=== PATIENT | female | born 1975 | race Caucasian/White ===

== ENCOUNTER 2019-01-29 22:06 | Inpatient (IN) | payer BC ==
[2019-01-29] MEDS ORDERED: IPRATROPIUM-ALBUTEROL 3 ML NEB INHALATION STA (23:16)
[2019-01-29 23:19] LABS: Basophils # (A) 0.1 k/uL (0-0.2); Basophils % (A) 1 %; Eosinophils # (A) 0.3 k/uL (0-0.7); Eosinophils % (A) 4 %; HCT 41.3 % (34.0-46.0); HGB 13.5 gm/dL (11.4-16.0); Lymphocytes # (A) 2.9 k/uL (1.0-4.8); Lymphocytes % (A) 35 %; MCH 29.5 pg (25.0-35.0); MCHC 32.7 g/dL (31.0-37.0); MCV 90.3 fL (80.0-100.0); Mean Platelet Volume 7.4; Monocytes # (A) 0.4 k/uL (0-1.0); Monocytes % (A) 5 %; Neutrophils # (A) 4.6 k/uL (1.3-7.7); Neutrophils % (A) 54 %; Platelet Count 271 k/uL (150-450); RBC 4.57 m/uL (3.80-5.40); RDW 12.5 % (11.5-15.5); WBC 8.5 k/uL (3.8-10.6)
[2019-01-29 23:34] LABS: ALT 20 U/L (9-52); AST 18 U/L (14-36); African American GFR (CKD) >90 (>60 ml/min/1.73 sqM); Alkaline Phosphatase 53 U/L (38-126); Anion Gap 10 mmol/L; Blood Urea Nitrogen 12 mg/dL (7-17); Calcium 8.9 mg/dL (8.4-10.2); Carbon Dioxide 22 mmol/L (22-30); Chloride 108 mmol/L (98-107); Glucose 89 mg/dL (74-99); Magnesium 1.9 mg/dL (1.6-2.3); Potassium 4.2 mmol/L (3.5-5.1); Sodium 140 mmol/L (137-145); Total Bilirubin 0.3 mg/dL (0.2-1.3); Total Protein 6.9 g/dL (6.3-8.2)
--- NOTE | 2019-01-29 23:39 | XR ---
EXAM: XR Chest, 2 Views CLINICAL HISTORY: ITS.REASON XR Reason: Chest Pain TECHNIQUE: Frontal and lateral views of the chest. COMPARISON: No relevant prior studies available. FINDINGS: Lungs: Mild peribronchial thickening. No focal consolidation. Pleural space: No significant pleural effusion or pneumothorax. Heart: Unremarkable. Mediastinum: Unremarkable. Bones/joints: No acute fracture. IMPRESSION: Mild peribronchial thickening. No focal consolidation.
[2019-01-29 23:45] LABS: INR 0.9 (<1.2); Prothrombin Time 9.4 sec (9.0-12.0)
[2019-01-29 23:54] LABS: D-Dimer 0.66 mg/L FEU (<0.60)
--- NOTE | 2019-01-30 00:05 | ED ---
General Adult HPI - General Source: patient, RN notes reviewed, old records reviewed Mode of arrival: ambulatory Limitations: no limitations <Stew Renteria - Last Filed: 01/30/19 00:11> <Luis Felipe Herman - Last Filed: 01/30/19 00:39> - General Chief complaint: Chest Pain Stated complaint: chest pain, SOB Time Seen by Provider: 01/29/19 22:16 - History of Present Illness Initial comments: 43-year-old female patient with past history of asthma presents ED with chief complaint of chest pain. Patient reports that beginning approximately 6 PM today she began a substernal pressure which radiated into her left arm. Patient reports she has waxing and waning worse breath as well. Patient states that the pain makes it difficult for her to take a deep breath. Patient is on oral contraceptives. Denies any long recent prolonged travel. Patient denies any pain in her legs. Patient denies any abdominal pain nausea vomiting or diarrhea. Patient is currently pain-free. Patient states that her father does have an TX which was fatal at age 62, denies any other family history of cardiovascular disease. Denies any other complaints this time. Systemic: Pt denies fatigue, fever/chills, rash. Pt denies weakness, night sweats, weight loss. Neuro: Pt denies headache, visual disturbances, syncope or pre-syncope. HEENT: Pt denies ocular discharge or irritation, otalgia, rhinorrhea, pharyngitis or notable lymphadenopathy. Cardiopulmonary: Pt denies heart palpitations, dyspnea on exertion. Abdominal/GI: Pt denies abdominal pain, n/v/d. : Pt denies dysuria, burning w/ urination, frequency/urgency. Denies new onset urinary or bowel incontinence. MSK: Pt denies myalgia, loss of strength or function in extremities. Neuro: Pt denies new onset weakness, paresthesias. (Stew Renteria) - Related Data Home Medications Medication Instructions Recorded Confirmed Dextroamphetamine/Amphetamine 10 mg PO TID 01/29/19 01/29/19 [Adderall] Levothyroxine Sodium [Synthroid] 100 mcg PO DAILY 01/29/19 01/29/19 Norethindrone-E.estradiol-Iron 1 tab PO DAILY 01/29/19 01/29/19 [Junel Fe 1 mg-20 Mcg Tablet] Allergies Allergy/AdvReac Type Severity Reaction Status Date / Time lemon Allergy Unknown Verified 01/29/19 22:49 mushroom Allergy Unknown Verified 01/29/19 22:49 Poultry [Fisher] Allergy Unknown Verified 01/29/19 22:49 tomato Allergy Unknown Verified 01/29/19 22:49 latex AdvReac Rash/Hives Verified 01/29/19 22:14 Review of Systems ROS Other: All systems not noted in ROS Statement are negative. <MyraStew J - Last Filed: 01/30/19 00:11> ROS Other: All systems not noted in ROS Statement are negative. <Luis Felipe Herman - Last Filed: 01/30/19 00:39> ROS Statement: Those systems with pertinent positive or pertinent negative responses have been documented in the HPI. Past Medical History Past Medical History: Thyroid Disorder History of Any Multi-Drug Resistant Organisms: None Reported Additional Past Surgical History / Comment(s): nasal X2 Past Psychological History: ADD/ADHD Smoking Status: Never smoker Past Alcohol Use History: Rare Past Drug Use History: None Reported <MyraStew J - Last Filed: 01/30/19 00:11> General Exam Limitations: no limitations <Stew Renteria - Last Filed: 01/30/19 00:11> - General Exam Comments Initial Comments: Constitutional: NAD, AOX3, Pt has pleasant affect. HEENT: NC/AT, trachea midline, neck supple, no lymphadenopathy. Posterior pharynx non erythematous, without exudates. External ears appear normal, without discharge. Mucous membranes moist. Eyes PERRLA, EOM intact. There is no scleral icterus. No pallor noted. Cardiopulmonary: RRR, no murmurs, rubs or gallops, no JVD noted. Lungs CTAB in anterior and posterior parker. No peripheral edema. Abdominal exam: Abdomen soft and non-distended. Abdomen non-tender to palpation in all 4 quadrants. Bowel sounds active in LLQ. No hepatosplenomegaly. No ecchymosis Neuro: CN II-XII grossly intact. No nuchal rigidity. No raccon eyes, no ng sign, no hemotympanum. No cervical spinal tenderness. MSK: No posterior calf tenderness bilaterally, homans sign negative bilaterally. Posterior tibialis and radial pulse +2 bilaterally. Sensation intact in upper and lower extremities. Full active ROM in upper and lower extremities, 5/5 stregnth. (Stew Renteria) Course Vital Signs 01/29/19 01/29/19 01/29/19 22:11 23:51 23:57 Temperature 98.3 F Pulse Rate 68 62 70 Respiratory 16 Rate Blood Pressure 150/92 O2 Sat by Pulse 99 Oximetry Medical Decision Making - Lab Data Result diagrams: 01/29/19 22:30 01/29/19 22:30 - EKG Data -: EKG Interpreted by Me (and Dr. Herman) <Stew Renteria - Last Filed: 01/30/19 00:11> - Lab Data Result diagrams: 01/29/19 22:30 01/29/19 22:30 <Luis Felipe Herman - Last Filed: 01/30/19 00:39> - Medical Decision Making 43-year-old female patient with past history of asthma presents ED with chief complaint of chest pain. Patient reports that beginning approximately 6 PM today she began a substernal pressure which radiated into her left arm. Patient reports she has waxing and waning worse breath as well. Patient states that the pain makes it difficult for her to take a deep breath. Patient is on oral contraceptives. Denies any long recent prolonged travel. Patient denies any pain in her legs. Patient denies any abdominal pain nausea vomiting or diarrhea. Patient is currently pain-free. Patient states that her father does have an TX which was fatal at age 62, denies any other family history of cardiovascular disease. Denies any other complaints this time. Patient vitla signs stable, afebrile. Physical exam did not display acute pathology. Laboratory investigations revealed nonpresent CBC, CMP. Correlation studies negative. D-dimer mildly elevated at 0.66. roponin negative. This revealed mild peribronchial thickening, no focal consolidation. EKG not concerning for acute ischemia. Patient signed out to attending physician Dr. Herman pending CTA. (Stew Renteria) Patient reexamined by myself, Dr. Herman. Patient resting comfortably in bed, symptom-free at this time. Dr. Marie paged twice then notified by cell phone of admission. Patient was updated on results and plan. (Luis Felipe Herman) - Lab Data Lab Results 01/29/19 01/29/19 01/29/19 Range/Units 22:30 22:30 22:30 WBC 8.5 (3.8-10.6) k/uL RBC 4.57 (3.80-5.40) m/uL Hgb 13.5 (11.4-16.0) gm/dL Hct 41.3 (34.0-46.0) % MCV 90.3 (80.0-100.0) fL MCH 29.5 (25.0-35.0) pg MCHC 32.7 (31.0-37.0) g/dL RDW 12.5 (11.5-15.5) % Plt Count 271 (150-450) k/uL Neutrophils % 54 % Lymphocytes % 35 % Monocytes % 5 % Eosinophils % 4 % Basophils % 1 % Neutrophils # 4.6 (1.3-7.7) k/uL Lymphocytes # 2.9 (1.0-4.8) k/uL Monocytes # 0.4 (0-1.0) k/uL Eosinophils # 0.3 (0-0.7) k/uL Basophils # 0.1 (0-0.2) k/uL PT 9.4 (9.0-12.0) sec INR 0.9 (<1.2) APTT 21.0 L (22.0-30.0) sec D-Dimer 0.66 H (<0.60) mg/L FEU Sodium 140 (137-145) mmol/L Potassium 4.2 (3.5-5.1) mmol/L Chloride 108 H (98-107) mmol/L Carbon Dioxide 22 (22-30) mmol/L Anion Gap 10 mmol/L BUN 12 (7-17) mg/dL Creatinine 0.66 (0.52-1.04) mg/dL Est GFR (CKD-EPI)AfAm >90 (>60 ml/min/1.73 sqM) Est GFR (CKD-EPI)NonAf >90 (>60 ml/min/1.73 sqM) Glucose 89 (74-99) mg/dL Calcium 8.9 (8.4-10.2) mg/dL Magnesium 1.9 (1.6-2.3) mg/dL Total Bilirubin 0.3 (0.2-1.3) mg/dL AST 18 (14-36) U/L ALT 20 (9-52) U/L Alkaline Phosphatase 53 (38-126) U/L Troponin I (0.000-0.034) ng/mL NT-Pro-B Natriuret Pep pg/mL Total Protein 6.9 (6.3-8.2) g/dL Albumin 4.0 (3.5-5.0) g/dL 01/29/19 01/29/19 Range/Units 22:30 22:30 WBC (3.8-10.6) k/uL RBC (3.80-5.40) m/uL Hgb (11.4-16.0) gm/dL Hct (34.0-46.0) % MCV (80.0-100.0) fL MCH (25.0-35.0) pg MCHC (31.0-37.0) g/dL RDW (11.5-15.5) % Plt Count (150-450) k/uL Neutrophils % % Lymphocytes % % Monocytes % % Eosinophils % % Basophils % % Neutrophils # (1.3-7.7) k/uL Lymphocytes # (1.0-4.8) k/uL Monocytes # (0-1.0) k/uL Eosinophils # (0-0.7) k/uL Basophils # (0-0.2) k/uL PT (9.0-12.0) sec INR (<1.2) APTT (22.0-30.0) sec D-Dimer (<0.60) mg/L FEU Sodium (137-145) mmol/L Potassium (3.5-5.1) mmol/L Chloride (98-107) mmol/L Carbon Dioxide (22-30) mmol/L Anion Gap mmol/L BUN (7-17) mg/dL Creatinine (0.52-1.04) mg/dL Est GFR (CKD-EPI)AfAm (>60 ml/min/1.73 sqM) Est GFR (CKD-EPI)NonAf (>60 ml/min/1.73 sqM) Glucose (74-99) mg/dL Calcium (8.4-10.2) mg/dL Magnesium (1.6-2.3) mg/dL Total Bilirubin (0.2-1.3) mg/dL AST (14-36) U/L ALT (9-52) U/L Alkaline Phosphatase (38-126) U/L Troponin I <0.012 (0.000-0.034) ng/mL NT-Pro-B Natriuret Pep 41 pg/mL Total Protein (6.3-8.2) g/dL Albumin (3.5-5.0) g/dL - EKG Data EKG Comments: 50. 63, OR interval 178, QRS 80, QT/QTC 414 since 423. Normal sinus rhythm, anterior infarct age interment. Normal EKG, no concern for acute ischemia at this time. (Stew Renteria) Disposition Is patient prescribed a controlled substance at d/c from ED?: No <Stwe Renteria - Last Filed: 01/30/19 00:11> <Luis Felipe Herman - Last Filed: 01/30/19 00:39> Clinical Impression: Chest pain Disposition: ADMITTED IP TO THIS HOSP Condition: Serious Referrals: Bianka Porras DO [Primary Care Provider] - 1-2 days
[2019-01-30] MEDS ORDERED: NITROGLYCERIN SL TABS 0.4 MG TAB SUBLINGUAL PRN (00:09)
--- NOTE | 2019-01-30 01:21 | CT ---
EXAM: CT Angiography Chest With Intravenous Contrast CLINICAL HISTORY: chest pain, SOB, elevated d-d mayuri ITS.REASON CT Reason: Pain TECHNIQUE: Axial computed tomographic angiography images of the chest with intravenous contrast using pulmonary embolism protocol. CTDI is 9.5 mGy and DLP is 429.9 mGy-cm. This CT exam was performed using one or more of the following dose reduction techniques: automated exposure control, adjustment of the mA and/or kV according to patient size, and/or use of iterative reconstruction technique. MIP reconstructed images were created and reviewed. COMPARISON: No relevant prior studies available. FINDINGS: Artifacts: Motion artifact. Pulmonary arteries: Essentially nondiagnostic study for PE due to bolus timing. No definite large central saddle embolus. Aorta: No aortic aneurysm or dissection. Great vessels of aortic arch: Aberrant right subclavian artery. Hepatic veins: Reflux of contrast into the hepatic veins. Lungs: Evaluation of the pulmonary parenchyma is limited due to motion artifact. No consolidation. Pleural space: No significant effusion. No pneumothorax. Heart: Unremarkable. Mediastinum: Mild esophageal wall thickening. Small hiatal hernia. Bones/joints: No acute fracture. Soft tissues: Unremarkable as visualized. Lymph nodes: Unremarkable. Adrenals: Right adrenal nodule measuring 1.7 cm. IMPRESSION: 1. Limited study for PE, as above. 2. Mild esophageal wall thickening. Small hiatal hernia. 3. Right adrenal nodule. 4. Additional incidental findings, as above.
--- NOTE | 2019-01-30 11:16 | US ---
EXAMINATION TYPE: US venous doppler duplex LE DATE OF EXAM: 01/30/2019 8:35 AM COMPARISON: NONE CLINICAL HISTORY: elevated d-dimer. chest pain, no leg symptoms SIDE PERFORMED: bilateral TECHNIQUE: The lower extremity deep venous system is examined utilizing real time linear array sonog david with graded compression, doppler sonography and color-flow sonography. VESSELS IMAGED: External Iliac Vein (EIV) Common Femoral Vein Deep Femoral Vein Greater Saphenous Vein * Femoral Vein Popliteal Vein Small Saphenous Vein * Proximal Calf Veins (* superficial vessels) Right Leg: Appears negative for DVT Left Leg: Internal echoes that were not compressible seen within popiteal vein, color flow was detec ming. Within the popliteal vein low level internal echoes are present, lack of compressibility. IMPRESSION: Deep venous thrombosis within the left popliteal vein is suspected. No evident deep venou s thrombosis at or above the right knee.
--- NOTE | 2019-01-30 11:25 | CONS ---
CONSULTATION Mrs. Tijerina is a 43-year-old female who is admitted to the emergency room with a complaint of chest discomfort. The patient gives a history that yesterday she started having some substernal chest discomfort which was radiating to the left arm. The patient's pain was waxing and waning and was with shortness of breath. She did not had any nausea, vomiting, or sweating. The pain lasted for few minutes and then it reoccurred. She came to the emergency room. EKGs and cardiac enzymes were normal. This patient is physically active. She usually runs 5 or 10 miles. About 2 or 3 weeks ago while she was running after 5 miles, she had an episode of near syncope. She denies any history of valvular disease and denies any history of diabetes, hypertension, or smoking. The patient does have a family history of coronary artery disease. PAST MEDICAL HISTORY: Includes a history of thyroid disorder, history of ADD and ADHD. PHYSICAL EXAMINATION: At present reveals a 43-year-old female who does not appear to be in any acute distress. In the emergency room, patient's oxygen saturation was 99%. Blood pressure was 150/90 mmHg. HEENT: Examination was negative. Neck was supple. There was no increase in jugular venous pressure. Both the carotid pulses were felt, there was no bruit. Chest is symmetrical. Heart, the PMI is not felt. First and second heart sounds are normal. There is no evidence of any murmur. Lungs are clinically clear to auscultation and percussion. Abdomen is negative. Extremities and peripheral pulsations are 2+. The patient's cardiac enzymes are normal. EKG is normal. The patient had a chest CTA done, which was normal. There was no evidence of pulmonary embolism. No coronary artery calcium is detected. FINAL IMPRESSION: Chest pains are suggestive of atypical angina. Patient is physically quite active and had an one episode of near syncope possibly secondary to dehydration or orthostatic hypotension. We will evaluate the patient with a stress echocardiogram and we will check the lipid panel. We will also have a radiologist look to see if there is any evidence of calcium in the coronary arteries. MMODL / IJN: [id number] /
[2019-01-30 11:36] LABS: Cholesterol 219 mg/dL (<200); HDL Cholesterol 41 mg/dL (40-60); LDL Cholesterol,Calculated 126 mg/dL (0-99); Triglycerides 260 mg/dL (<150)
[2019-01-30] MEDS ORDERED: HEPARIN SODIUM,PORCINE 10,000 UNIT/ML 1 ML VIAL IV ONE (12:08)
[2019-01-30] MEDS ORDERED: HEPARIN SODIUM,PORCINE 5,000 UNIT/ML 1 ML VIAL IV PRN (12:08)
--- NOTE | 2019-01-30 12:20 | US ---
EXAMINATION TYPE: US carotid duplex BILAT DATE OF EXAM: 01/30/2019 COMPARISON: NONE CLINICAL HISTORY: syncope. EXAM MEASUREMENTS: RIGHT: Peak Systolic Velocity (PSV) cm/sec ----- Right CCA: 74.6 ----- Right ICA: 102.6 ----- Right ECA: 112.4 ICA/CCA ratio: 1.4 RIGHT: End Diastole cm/sec ----- Right CCA: 21.5 ----- Right ICA: 18.5 ----- Right ECA: 15.5 LEFT: Peak Systolic Velocity (PSV) cm/sec ----- Left CCA: 77.3 ----- Left ICA: 65.4 ----- Left ECA: 69.8 ICA/CCA ratio: 0.8 LEFT: End Diastole cm/sec ----- Left CCA: 23.2 ----- Left ICA: 32.5 ----- Left ECA: 10.8 VERTEBRALS (direction of flow): Right Vertebral: Antegrade Left Vertebral: Antegrade Rhythm: Normal No evident atherosclerotic changes, no increased velocities seen bilaterally. Grayscale, color Doppler, spectral Doppler imaging performed of the carotid arteries. Waveform analys is does not show significant stenosis of the internal carotid arteries. IMPRESSION: No hemodynamic significant stenosis of the proximal internal carotid arteries bilaterall y by Doppler criteria, an indirect measurement of carotid stenosis.
[2019-01-30 12:40] LABS: Appearance,Urine Clear (Clear); Bacteria,Urine Rare /hpf; Bilirubin,Urine Negative (Negative); Blood,Urine Moderate (Negative); Color,Urine Light Yellow; Glucose,Urine (UA) Negative (Negative); Ketones,Urine Negative (Negative); Leukocyte Esterase,Urine Trace (Negative); Nitrite,Urine Negative (Negative); PH, Urine 7.5 (5.0-8.0); Protein,Urine Negative (Negative); RBC,Urine 95 /hpf (0-5); Specific Gravity,Urine 1.008 (1.001-1.035); Squamous Epithelial Cell,Urine 1 /hpf (0-4); Urobilinogen,Urine <2.0 mg/dL (<2.0); WBC,Urine 3 /hpf (0-5)
--- NOTE | 2019-01-30 13:01 | ECHOF ---
Referral Reason:chest pain MEASUREMENTS -------- HEIGHT: 175.3 cm WEIGHT: 90.7 kg BP: 137/86 RVIDd: 3.2 cm (< 3.3) IVSd: 1.3 cm (0.6 - 1.1) LVIDd: 4.3 cm (3.9 - 5.3) LVPWd: 1.3 cm (0.6 - 1.1) IVSs: 1.7 cm LVIDs: 3.4 cm LVPWs: 1.4 cm LA Diam: 3.4 cm (2.7 - 3.8) LAESV Index (A-L): 27.83 ml/m Ao Diam: 3.3 cm (2.0 - 3.7) AV Cusp: 2.5 cm (1.5 - 2.6) MV EXCURSION: 19.197 mm (> 18.000) MV EF SLOPE: 105 mm/s (70 - 150) EPSS: 0.3 cm MV E Santana: 0.96 m/s MV DecT: 168 ms MV A Santana: 0.77 m/s MV E/A Ratio: 1.26 FINDINGS -------- Sinus rhythm. This was a technically good study. The left ventricular size is normal. There is mild concentric left ventricular hypertrophy. Overa ll left ventricular systolic function is normal with, an EF between 60 - 65 %. The right ventricle is normal in size. Normal LA size by volume 22+/-6 ml/m2. The right atrium is normal in size. Interatrial and interventricular septum intact. The aortic valve is trileaflet and appears structurally normal. The mitral valve is normal. The tricuspid valve appears structurally normal. There is no pulmonic regurgitation present. The aortic root size is normal. Normal inferior vena cava with normal inspiratory collapse consistent with estimated right atrial pre ssure of 5 mmHg. The inferior vena cava is mildly dilated. There is no pericardial effusion. CONCLUSIONS -------- 1. Sinus rhythm. 2. This was a technically good study. 3. The left ventricular size is normal. 4. There is mild concentric left ventricular hypertrophy. 5. Overall left ventricular systolic function is normal with, an EF between 60 - 65 %. 6. The right ventricle is normal in size. 7. Normal LA size by volume 22+/-6 ml/m2. 8. The right atrium is normal in size. 9. Interatrial and interventricular septum intact. 10. The aortic valve is trileaflet and appears structurally normal. 11. The mitral valve is normal. 12. The tricuspid valve appears structurally normal. 13. There is no pulmonic regurgitation present. 14. The aortic root size is normal. 15. Normal inferior vena cava with normal inspiratory collapse consistent with estimated right atrial pressure of 5 mmHg. 16. The inferior vena cava is mildly dilated. 17. There is no pericardial effusion. VOCATIONAL TRAINING TEACHER: Lucrecia Shaffer RDCS
[2019-01-30] MEDS: HEPARIN SOD,PORK IN 0.45% NACL 25,000 UNIT in 0.45% NACL 1 250ML.BAG IV SCH (13:25)
[2019-01-30] MEDS ORDERED: LORATADINE 10 MG TAB PO PRN (13:34)
--- NOTE | 2019-01-30 13:50 | P.HPIM ---
History of Present Illness H&P Date: 01/30/19 Chief Complaint: Chest pain This is a 43-year-old female, a patient of Dr. Porras. She has a known past medical history of hyperlipidemia diet controlled, exercise-induced asthma, ADHD and is on oral contraceptives. Patient presents to the emergency room with complaints of chest pain that started yesterday evening. The pain was in the sternum radiating down the left arm. She also had shortness of breath and nausea at that time. The pain lasted for a few minutes and then it reoccurred again. She did take an aspirin with some minimal relief. She came into the [facility] room for further evaluation and treatment. EKG showed a normal sinus rhythm cardiac enzymes were negative 3. The patient also reports that she had been participating in a running marathon that lasted 2 days earlier in January on the and . She reports that she ran a 7 mile distance and then had another run of a 5 mile distance. During that time she had a syncopal episode that last a few seconds. She reports that she had not been eating or drinking very well during that time. She also had slept in the car during that period of time. She denies any fever, chills, sweats any cough or cold-like symptoms. Denies any burning with urination or bowel movement changes. She had has never had symptoms like this before. CTA of the chest was a limited study for PE did reveal mild esophageal wall thickening a small hiatal hernia and a right adrenal nodule. Patient had venous Doppler of the lower extremities revealing deep venous thrombosis within the left popliteal vein is suspected. No evident DVT in the right leg. Patient did have a mildly elevated d-dimer of 0.66. She was started on IV heparin for possible DVT and PE. Patient was seen evaluated by cardiology services they ordered an echocardiogram which shows an EF of 60-65% and mild left ventricle hypertrophy. No significant valvular abnormalities. And patient was scheduled for a stress test. Carotid Doppler was negative for any significant hemodynamic stenosis. Patient has no prior history of blood clots. Patient denies any leg pain. She has a family history of a father who had an MD at age 62. Review of Systems Please refer to HPI otherwise unremarkable Past Medical History Past Medical History: Asthma, Thyroid Disorder History of Any Multi-Drug Resistant Organisms: None Reported Additional Past Surgical History / Comment(s): nasal X2 Additional Past Anesthesia/Blood Transfusion Reaction / Comment(s): Woke up in the middle of a nasal surgery Smoking Status: Never smoker - Past Family History Mother Additional Family Medical History / Comment(s): waqas Father Family Medical History: CVA/TIA, Myocardial Infarction (MD) Additional Family Medical History / Comment(s): Father of a MD at age 62 Medications and Allergies Home Medications Medication Instructions Recorded Confirmed Type Dextroamphetamine/Amphetamine 10 mg PO TID 01/29/19 01/30/19 History [Adderall] Levothyroxine Sodium [Synthroid] 100 mcg PO DAILY 01/29/19 01/30/19 History Norethindrone-E.estradiol-Iron 1 tab PO DAILY 01/29/19 01/30/19 History [Junel Fe 1 mg-20 Mcg Tablet] Loratadine [Claritin] 10 mg PO DAILY PRN 01/30/19 01/30/19 History Allergies Allergy/AdvReac Type Severity Reaction Status Date / Time latex Allergy Rash/Hives Verified 01/30/19 08:17 lemon Allergy Unknown Verified 01/30/19 02:04 mushroom Allergy Unknown Verified 01/30/19 02:04 Poultry [Albert] Allergy Unknown Verified 01/30/19 02:04 tomato Allergy Unknown Verified 01/30/19 02:04 Physical Exam Vitals: Vital Signs Temp Pulse Pulse Resp BP BP BP 01/30/19 11:16 98.4 F 53 L 18 136/77 01/30/19 07:39 98.3 F 59 L 16 136/76 01/30/19 02:57 18 01/30/19 02:27 98 F 62 18 137/86 01/30/19 01:50 50 L 16 125/98 01/29/19 23:57 70 01/29/19 23:51 62 01/29/19 22:11 98.3 F 68 16 150/92 Pulse Ox 01/30/19 11:16 97 01/30/19 07:39 97 01/30/19 02:57 01/30/19 02:27 100 01/30/19 01:50 100 01/29/19 23:57 01/29/19 23:51 01/29/19 22:11 99 Intake and Output 01/29/19 01/30/19 01/30/19 22:59 06:59 14:59 Other: Weight 90.718 kg 90.718 kg Head normocephalic Neck supple Lungs clear to auscultation bilaterally no wheezing or crackles Heart regular rate and rhythm S1-S2, no rub or gallop Abdomen is soft nontender nondistended positive bowel sounds no hepatosplenomegaly Extremities no edema Neuro alert and orientated to 3 Results CBC & Chem 7: 01/29/19 22:30 01/29/19 22:30 Labs: Abnormal Lab Results - Last 24 Hours (Table) 01/29/19 01/29/19 01/30/19 Range/Units 22:30 22:30 05:19 APTT 21.0 L (22.0-30.0) sec D-Dimer 0.66 H (<0.60) mg/L FEU Chloride 108 H (98-107) mmol/L Triglycerides 260 H (<150) mg/dL Cholesterol 219 H (<200) mg/dL LDL Cholesterol, Calc 126 H (0-99) mg/dL Urine Blood (Negative) Ur Leukocyte Esterase (Negative) Urine RBC (0-5) /hpf Urine Bacteria (None) /hpf 01/30/19 Range/Units 10:28 APTT (22.0-30.0) sec D-Dimer (<0.60) mg/L FEU Chloride (98-107) mmol/L Triglycerides (<150) mg/dL Cholesterol (<200) mg/dL LDL Cholesterol, Calc (0-99) mg/dL Urine Blood Moderate H (Negative) Ur Leukocyte Esterase Trace H (Negative) Urine RBC 95 H (0-5) /hpf Urine Bacteria Rare H (None) /hpf Thrombosis Risk Factor Assmnt - Choose All That Apply Each Factor Represents 1 point: Age 41-60 years, Oral contraceptives or hormone replacement therapy Thrombosis Risk Factor Assessment Total Risk Factor Score: 2 Thrombosis Risk Factor Assessment Level: Low Risk Assessment and Plan Assessment: 1. Chest pain and shortness of breath: Possibly related to PE. Cardiac workup in process. Troponins are negative 3 sets. Patient is scheduled for stress test today. Echo shows an EF of 60-65% with mild left ventricle hypertrophy 2. Possible PE and suspected left leg DVT: Possibly related to patient being on oral contraceptive medications and having prolonged periods of time sleeping in the car. Oral contraceptives have been discontinued. Patient has been started on IV heparin. We'll check if insurance will cover the Xarelto for a nticoagulation for discharge. 3. Syncopal episode possibly related to dehydration or orthostatic hypotension. Carotid Doppler negative for any significant hemodynamic stenosis echo shows an EF 60-65% with no snacking valvular abnormality. She has been in normal sinus rhythm. Seen and evaluated by cardiology services. 4. Hyperlipidemia diet controlled 5. ADHD continue the Adderall 6. Hypothyroidism continue Synthroid 7. Right adrenal nodule noted on computed tomography scan of the chest recommend further follow-up outpatient. 8. Mild esophageal wall thickening and small hiatal hernia noted on computed tomography scan. Patient reports her last EGD was 8 years ago. No acid reflux like symptoms. Patient can have further workup completed in the outpatient setting if needed. GI prophylaxis Pepcid and DVT prophylaxis IV heparin Time with Patient: Greater than 30 (Greater than 50% of the total time spent in counseling and coordination of care.I performed an examination of the patient and discussed their management with the physician Network Liaison. I have reviewed the Physician Network Liaison's notes and agree with the documented findings and plan of care)
--- NOTE | 2019-01-30 13:58 | ECHOS ---
STRESS ECHOCARDIOGRAM INDICATIONS: Chest pain. MEDICATIONS: Synthroid, Adderal, Junel, Claritin BASELINE HEART RATE: 51 BASELINE BLOOD PRESSURE: 122/72 MAXIMUM HEART RATE: 159 MAXIMUM BLOOD PRESSURE: 209/88 85% MPHR: 152 100% MPHR: 179 METS: 13.3 MAXIMUM STAGE REACHED: V TOTAL EXERCISE TIME: 13:00 CLINICAL INFORMATION: Patient was exercised for a total period of 13 minutes, peak heart rate of 159 was achieved. Maximum blood pressure of 209/88 mmHg was noted. Patient did not complain of any chest pain during the test. Resting EKG shows normal sinus rhythm with normal OH interval and QRS duration and normal ST-T waves. No ST-segment depression suggestive of ischemia is noted. No dysrhythmias are noted. The baseline echocardiographic images reveals normal left ventricular chamber size with normal left ventricular systolic function in the immediate post exercise period. Normal increase in the wall thickness and contractility is noted. FINAL IMPRESSION: This stress echocardiographic study is negative for stress-induced ischemia. EKG portion of the stress is not suggestive of ischemia. Patient's exercise tolerance is excellent. MMODL / IJN: [id number] /
[2019-01-30 16:51] LABS: Basophils % (A) 1 %; Eosinophils # (A) 0.3 k/uL (0-0.7); Eosinophils % (A) 4 %; HCT 40.9 % (34.0-46.0); HGB 13.3 gm/dL (11.4-16.0); Lymphocytes # (A) 1.6 k/uL (1.0-4.8); Lymphocytes % (A) 25 %; MCH 30.3 pg (25.0-35.0); MCHC 32.5 g/dL (31.0-37.0); MCV 93.2 fL (80.0-100.0); Mean Platelet Volume 8.1; Monocytes # (A) 0.4 k/uL (0-1.0); Monocytes % (A) 5 %; Neutrophils # (A) 4.2 k/uL (1.3-7.7); Neutrophils % (A) 64 %; Platelet Count 267 k/uL (150-450); RBC 4.39 m/uL (3.80-5.40); RDW 12.6 % (11.5-15.5); WBC 6.6 k/uL (3.8-10.6)
[2019-01-30 17:19] LABS: Prothrombin Time 10.2 sec (9.0-12.0)
[2019-01-30 17:27] LABS: Partial Thromboplastin Time 166.9 sec (22.0-30.0)
[2019-01-30] MEDS: NON-FORMULARY DRUG (Dextroamphetamine/Amphetamine [Adderall] 10 MG) PO SCH ×2 (17:37→21:05)
[2019-01-30] MEDS ORDERED: ZOLPIDEM 5 MG TAB PO SCH (21:00)
[2019-01-31] MEDS: HEPARIN SOD,PORK IN 0.45% NACL 25,000 UNIT in 0.45% NACL 1 250ML.BAG IV SCH (04:40)
[2019-01-31 05:59] LABS: Basophils # (A) 0.1 k/uL (0-0.2); Basophils % (A) 1 %; Eosinophils # (A) 0.4 k/uL (0-0.7); Eosinophils % (A) 6 %; HCT 41.5 % (34.0-46.0); HGB 13.3 gm/dL (11.4-16.0); Lymphocytes # (A) 3.4 k/uL (1.0-4.8); Lymphocytes % (A) 48 %; MCH 29.3 pg (25.0-35.0); MCV 91.7 fL (80.0-100.0); Mean Platelet Volume 7.4; Monocytes # (A) 0.4 k/uL (0-1.0); Monocytes % (A) 5 %; Neutrophils # (A) 2.7 k/uL (1.3-7.7); Neutrophils % (A) 38 %; Platelet Count 260 k/uL (150-450); RBC 4.52 m/uL (3.80-5.40); RDW 12.5 % (11.5-15.5); WBC 7.1 k/uL (3.8-10.6)
[2019-01-31 06:16] LABS: ALT 16 U/L (9-52); AST 14 U/L (14-36); African American GFR (CKD) >90 (>60 ml/min/1.73 sqM); Albumin 3.3 g/dL (3.5-5.0); Alkaline Phosphatase 47 U/L (38-126); Anion Gap 8 mmol/L; Blood Urea Nitrogen 9 mg/dL (7-17); Calcium 8.8 mg/dL (8.4-10.2); Carbon Dioxide 24 mmol/L (22-30); Chloride 107 mmol/L (98-107); Cholesterol 228 mg/dL (<200); Glucose 96 mg/dL (74-99); HDL Cholesterol 49 mg/dL (40-60); LDL Cholesterol,Calculated 124 mg/dL (0-99); Potassium 4.3 mmol/L (3.5-5.1); Sodium 139 mmol/L (137-145); Total Bilirubin 0.2 mg/dL (0.2-1.3); Triglycerides 273 mg/dL (<150)
[2019-01-31] MEDS ORDERED: LEVOTHYROXINE 100 MCG TAB PO SCH (06:30)
[2019-01-31 06:57] VITALS: RESP 18
[2019-01-31] MEDS: NON-FORMULARY DRUG (Dextroamphetamine/Amphetamine [Adderall] 10 MG) PO SCH (08:38)
[2019-01-31] MEDS ORDERED: ATORVASTATIN 20 MG TAB PO SCH (09:00)
[2019-01-31] MEDS ORDERED: FAMOTIDINE 20 MG TAB PO SCH (09:00)
[2019-01-31] MEDS ORDERED: ASPIRIN 325 MG TAB PO SCH (09:00)
--- NOTE | 2019-01-31 09:51 | US ---
EXAMINATION TYPE: US venous doppler duplex LE LT DATE OF EXAM: 01/31/2019 7:35 AM COMPARISON: None. CLINICAL HISTORY: repeat shelby studly LLE r/o dvt. Patient on Heparin. SIDE PERFORMED: Left TECHNIQUE: The lower extremity deep venous system is examined utilizing real time linear array sonog david with graded compression, doppler sonography and color-flow sonography. VESSELS IMAGED: External Iliac Vein (EIV) Common Femoral Vein Deep Femoral Vein Greater Saphenous Vein * Femoral Vein Popliteal Vein Small Saphenous Vein * Proximal Calf Veins (* superficial vessels) Left Leg: Negative for DVT No popliteal fossa lesion is seen. IMPRESSION: THIS EXAMINATION IS NEGATIVE FOR DVT WITHIN THE LEFT LEG.
[2019-01-31 11:21] VITALS: BP 124/80; PULSE 59; TEMP 97.4
--- NOTE | 2019-01-31 11:26 | PN ---
PROGRESS NOTE Mrs Tijerina, had a stress test, walked for 13 minutes and had a negative stress echo yesterday. However, she complained of some sharp pain in her left leg area between the ankle and the knee. She went on to have a DVT, which raised the possibility of some suspicion for thrombus in the left popliteal vein and was started on heparin. Clinically does not seem very significant. I recommended to repeat another ultrasound today and if it is still abnormal, she will need anticoagulation. Patient is also on control pills and this has been discontinued. Yesterday, she had a CT angiogram, which was a nondiagnostic study because of the timing and motion artifact. However, her D-dimer was only modestly elevated at 0.66. This morning, she is asymptomatic. Vital signs stable. S1-S2 heard normally. Lungs are clear. Abdomen and lower extremity exam unchanged. We will await the results of the repeat Doppler, but we will continue heparin in the interim. Her LDL cholesterol is high at 124. I will initiate her on atorvastatin 20 mg daily. I discussed my thoughts in detail with the patient. MMODL / IJN: [id number] /
--- NOTE | 2019-01-31 14:31 | P.DS ---
Providers Date of admission: 01/30/19 14:37 Expected date of discharge: 01/31/19 Attending physician: Kathy Marie Consults: 01/30/19 00:09 Consult Physician Urgent Consulting Provider: Trell Stephens Consult Reason/Comments: chest pain Do you want consulting provider notified?: Yes Primary care physician: [facility] Course: Diagnoses on discharge: 1. Chest pain and shortness of breath: Possibly related to PE. Cardiac workup in process. Troponins are negative 3 sets. Patient is scheduled for stress test today. Echo shows an EF of 60-65% with mild left ventricle hypertrophy 2. Possible PE and suspected left leg DVT: Possibly related to patient being on oral contraceptive medications and having prolonged periods of time sleeping in the car. Oral contraceptives have been discontinued. Patient has been started on IV heparin. Repeat lower extremity Doppler negative for DVT case discussed in details with cardiology no need for anticoagulation patient will be discharged home on Ecotrin 81 mg daily and was advised to discontinue using oral contraceptive 3. Syncopal episode possibly related to dehydration or orthostatic hypotension. Carotid Doppler negative for any significant hemodynamic stenosis echo shows an EF 60-65% with no valvular abnormality. She has been in normal sinus rhythm. Seen and evaluated by cardiology services. 4. Hyperlipidemia diet controlled 5. ADHD continue the Adderall 6. Hypothyroidism continue Synthroid 7. Right adrenal nodule noted on computed tomography scan of the chest rec ommend further follow-up outpatient. 8. Mild esophageal wall thickening and small hiatal hernia noted on computed tomography scan. Patient reports her last EGD was 8 years ago. No acid reflux like symptoms. Patient can have further workup completed in the outpatient setting if needed. Hospital course: This is a 43-year-old female, a patient of Dr. Porras. She has a known past medical history of hyperlipidemia diet controlled, exercise-induced asthma, ADHD and is on oral contraceptives. Patient presents to the emergency room with complaints of chest pain that started yesterday evening. The pain was in the sternum radiating down the left arm. She also had shortness of breath and nausea at that time. The pain lasted for a few minutes and then it reoccurred again. She did take an aspirin with some minimal relief. She came into the emergency room for further evaluation and treatment. EKG showed a normal sinus rhythm cardiac enzymes were negative 3. The patient also reports that she had been participating in a running marathon that lasted 2 days earlier in January on the and . She reports that she ran a 7 mile distance and then had another run of a 5 mile distance. During that time she had a syncopal episode that last a few seconds. She reports that she had not been eating or drinking very well during that time. She also had slept in the car during that period of time. She denies any fever, chills, sweats any cough or cold-like symptoms. Denies any burning with urination or bowel movement changes. She had has never had symptoms like this before. CTA of the chest was a limited study for PE did reveal mild esophageal wall thickening a small hiatal hernia and a right adrenal nodule. Patient had venous Doppler of the lower extremities revealing deep venous thrombosis within the left popliteal vein is suspected. No evident DVT in the right leg. Patient did have a mildly elevated d-dimer of 0.66. She was started on IV heparin for possible DVT and PE. Patient was seen evaluated by cardiology services they ordered an echocardiogram which shows an EF of 60-65% and mild left ventricle hypertrophy. No significant valvular abnormalities. And patient was scheduled for a stress test. Carotid Doppler was negative for any significant hemodynamic stenosis. Patient has no prior history of blood clots. Patient denies any leg pain. She has a family history of a father who had an [place] at age 62. Patient was admitted to observation unit lower extremity Doppler was suspicious for left lower extremity popliteal clot she was started on IV heparin however she was reevaluated by cardiology and lower extremity Doppler was repeated and was negative for any evidence of DVT IV heparin was discontinued Fox was no need for any anticoagulation. Patient was discharged home on oral Ecotrin 81 mg daily, and was told to avoid oral contraceptive at this time and to avoid very strenuous exercise. Patient Condition at Discharge: Serious Plan - Discharge Summary New Discharge Prescriptions: New Aspirin EC [Ecotrin Low Dose] 81 mg PO DAILY #30 tablet. Atorvastatin [Lipitor] 20 mg PO DAILY tab Continue Levothyroxine Sodium [Synthroid] 100 mcg PO DAILY Dextroamphetamine/Amphetamine [Adderall] 10 mg PO TID Loratadine [Claritin] 10 mg PO DAILY PRN PRN Reason: Allergy Symptoms Discontinued Norethindrone-E.estradiol-Iron [Junel Fe 1 mg-20 Mcg Tablet] 1 tab PO DAILY Discharge Medication List Dextroamphetamine/Amphetamine [Adderall] 10 mg PO TID 01/29/19 [History] Levothyroxine Sodium [Synthroid] 100 mcg PO DAILY 01/29/19 [History] Loratadine [Claritin] 10 mg PO DAILY PRN 01/30/19 [History] Aspirin EC [Ecotrin Low Dose] 81 mg PO DAILY #30 tablet. 01/31/19 [Rx] Atorvastatin [Lipitor] 20 mg PO DAILY tab 01/31/19 [Rx] Follow up Appointment(s)/Referral(s): Bianka Porras DO [Primary Care Provider] - 1-2 days Shanti Mueller MD [STAFF PHYSICIAN] - As Needed Patient Instructions/Handouts: Chest Pain (DC)
== END 2019-01-31 14:52 | disposition home or self-care (01) | DRG 176 ==
LOC: EC 22:06 → 1SOBS 01-30 00:40 → OBSVTOIN 01-30 14:37
PROVIDERS: ADMIT Internal Medicine; ATTEND Internal Medicine
DX: I26.99 Other pulmonary embolism without acute cor pulmonale (principal); I82.432 Acute embolism and thrombosis of left popliteal vein; E27.8 Other specified disorders of adrenal gland; T38.4X5A Adverse effect of oral contraceptives, initial encounter; E03.9 Hypothyroidism, unspecified; E78.5 Hyperlipidemia, unspecified; F90.9 Attention-deficit hyperactivity disorder, unspecified type; I51.7 Cardiomegaly; K22.9 Disease of esophagus, unspecified; K44.9 Diaphragmatic hernia without obstruction or gangrene; J45.990 Exercise induced bronchospasm; Z79.890 Hormone replacement therapy; Z79.899 Other long term (current) drug therapy; Z91.040 Latex allergy status; Z91.018 Allergy to other foods; Z82.49 Family history of ischemic heart disease and other diseases of the circulatory system
CPT/HCPCS: 36415; 71046; 71275; 80053; 80061; 81001; 83735; 83880; 84484; 85025; 85379; 85610; 85730; 93005; 93306; 93351; 93880; 93970; 94640; 99285

== ENCOUNTER 2019-02-15 20:31 | Observation (INO) | payer BC ==
[2019-02-15] MEDS ORDERED: SODIUM CHLORIDE 0.9% 500 ML 500 ML IV STA (21:21)
[2019-02-15] MEDS ORDERED: VANCOMYCIN IV PER PHARMACY 1 EACH MISC MISCELLANE PRN (21:35)
[2019-02-15] MEDS ORDERED: NALOXONE 0.4 MG/ML 1 ML VIAL IV PRN (21:35)
--- NOTE | 2019-02-15 21:35 | ED ---
General Adult HPI - General Chief complaint: Headache Stated complaint: Headache Time Seen by Provider: 02/15/19 21:11 Source: patient Mode of arrival: ambulatory Limitations: no limitations - History of Present Illness Initial comments: Christy is a 43-year-old female who presents to the emergency department today for evaluation of rash on her face. Patient reports that earlier in the week she noticed a rash around her mouth she was seen at an urgent care and diagnosed with impetigo, she was given topical antibiotics however over the course of the week the rash has spread from the periorbital area over her cheeks her chin down her neck onto her chest and today she noted some rash on her upper eyelid. Patient was reevaluated and urgent care but was advised that she needed to come to the hospital for further evaluation and possible antibiotics. Patient reports that because of the rash she hasn't been eating or drinking well. She's been having a mild frontal headache, but no fever, no pain with range of motion of the neck, no focal neurologic deficits. Patient has no history of MRSA skin infections but she was admitted to the hospital for 3 days approximately 2 weeks ago due to a suspected lower extremity DVT. - Related Data Home Medications Medication Instructions Recorded Confirmed Dextroamphetamine/Amphetamine 10 mg PO TID 01/29/19 02/15/19 [Adderall] Levothyroxine Sodium [Synthroid] 100 mcg PO DAILY 01/29/19 02/15/19 Acyclovir 400 mg PO Q4H 02/15/19 02/15/19 Cephalexin [Keflex] 500 mg PO Q8HR 02/15/19 02/15/19 Sulfamethox-Tmp 800-160Mg [Bactrim 1 tab PO Q12HR 02/15/19 02/15/19 DS 800-160 mg] Previous Rx's Medication Instructions Recorded Aspirin EC [Ecotrin Low Dose] 81 mg PO DAILY #30 tablet. 01/31/19 Atorvastatin [Lipitor] 20 mg PO DAILY tab 01/31/19 Allergies Allergy/AdvReac Type Severity Reaction Status Date / Time latex Allergy Rash/Hives Verified 02/15/19 20:49 lemon Allergy Unknown Verified 02/15/19 20:49 mushroom Allergy Unknown Verified 02/15/19 20:49 Poultry [Topping] Allergy Unknown Verified 02/15/19 20:49 tomato Allergy Unknown Verified 02/15/19 20:49 Review of Systems ROS Statement: Those systems with pertinent positive or pertinent negative responses have been documented in the HPI. ROS Other: All systems not noted in ROS Statement are negative. Past Medical History Past Medical History: Asthma, Thyroid Disorder History of Any Multi-Drug Resistant Organisms: None Reported Additional Past Surgical History / Comment(s): nasal X2 Additional Past Anesthesia/Blood Transfusion Reaction / Comment(s): Woke up in the middle of a nasal surgery Past Psychological History: ADD/ADHD Smoking Status: Never smoker Past Alcohol Use History: None Reported Past Drug Use History: None Reported - Past Family History Mother Additional Family Medical History / Comment(s): waqas Father Family Medical History: CVA/TIA, Myocardial Infarction (MD) Additional Family Medical History / Comment(s): Father of a MD at age 62 General Exam - General Exam Comments Initial Comments: Physical Exam GENERAL: Appears dehydrated HENT: Normocephalic, Atraumatic. Full ROM of neck without pain or meningeal signs Dry mucous membranes Skin infection most prominent in perioral region, yellow and crusting with underlying erythema, erythematous rash extends over chin, neck, chest, small lesions on left eyelid EYES: PERRL, EOMI PULMONARY: Unlabored respirations. No audible rales rhonchi or wheezing was noted. CARDIOVASCULAR: There is a regular rate and rhythm without any murmurs gallops or rubs. ABDOMEN: Soft and nontender with normal bowel sounds. SKIN: Chronic dermatitis of bilateral hands Facial rash as noted above : Deferred NEUROLOGIC: Patient is alert and oriented x3. Moving all extremities spontaneously MUSCULOSKELETAL: Normal extremities with adequate strength and full range of motion. No lower extremity swelling or edema. No calf tenderness. PSYCHIATRIC: Normal psychiatric evaluation. Limitations: no limitations Limitations: no limitations Course Vital Signs 02/15/19 20:37 Temperature 98.7 F Pulse Rate 78 Respiratory 18 Rate Blood Pressure 144/95 O2 Sat by Pulse 98 Oximetry Medical Decision Making - Medical Decision Making The patient was seen and evaluated upon arrival to the emergency department, patient presenting with a rash to her face neck and chest. Rash is consistent with impetigo however is not responding to topical and oral antibiotics. Patient was recently admitted to the hospital therefore is high risk for an MRSA infection. Patient also appears significantly dehydrated and is having a headache. Labs imaging IV fluids were ordered. Vancomycin was ordered for treatment of infection. Given the extent of the patient's rash I will plan to admit her to the hospital with infectious disease consult. Patient's primary care physician [facility] Disposition Clinical Impression: Impetigo, Dehydration Disposition: ADMITTED IP TO THIS HOSP Condition: Stable Referrals: Bianka Porras DO [Primary Care Provider] - 1-2 days
[2019-02-15] MEDS: SODIUM CHLORIDE 0.9% 1,000 ML IV SCH (21:55)
[2019-02-15] MEDS ORDERED: VANCOMYCIN 1,500 MG in SODIUM CHLORIDE 0.9% 250 ML IVPB ONE (22:00)
[2019-02-15 22:07] LABS: Basophils # (A) 0.1 k/uL (0-0.2); Basophils % (A) 1 %; Eosinophils # (A) 0.1 k/uL (0-0.7); Eosinophils % (A) 1 %; HGB 15.3 gm/dL (11.4-16.0); Lymphocytes # (A) 2.1 k/uL (1.0-4.8); Lymphocytes % (A) 29 %; MCHC 32.5 g/dL (31.0-37.0); MCV 89.4 fL (80.0-100.0); Mean Platelet Volume 7.1; Monocytes # (A) 0.6 k/uL (0-1.0); Monocytes % (A) 8 %; Neutrophils # (A) 4.4 k/uL (1.3-7.7); Neutrophils % (A) 60 %; Platelet Count 223 k/uL (150-450); RBC 5.26 m/uL (3.80-5.40); RDW 12.4 % (11.5-15.5); WBC 7.4 k/uL (3.8-10.6)
[2019-02-15 22:19] LABS: ALT 18 U/L (9-52); AST 29 U/L (14-36); African American GFR (CKD) >90 (>60 ml/min/1.73 sqM); Albumin 4.5 g/dL (3.5-5.0); Alkaline Phosphatase 79 U/L (38-126); Anion Gap 10 mmol/L; Blood Urea Nitrogen 12 mg/dL (7-17); Calcium 9.7 mg/dL (8.4-10.2); Carbon Dioxide 25 mmol/L (22-30); Chloride 104 mmol/L (98-107); Glucose 88 mg/dL (74-99); Sodium 139 mmol/L (137-145); Total Bilirubin 0.4 mg/dL (0.2-1.3); Total Protein 7.9 g/dL (6.3-8.2)
[2019-02-15] MEDS: ACETAMINOPHEN TAB 325 MG TAB PO PRN (23:41)
[2019-02-16] MEDS: SODIUM CHLORIDE 0.9% 1,000 ML IV SCH (08:48)
[2019-02-16] MEDS ORDERED: VANCOMYCIN 1,500 MG in SODIUM CHLORIDE 0.9% 250 ML IVPB SCH (09:00)
--- NOTE | 2019-02-16 09:57 | P.CONS ---
History of Present Illness - Reason for Consult Consult date: 02/16/19 Impetigo with secondary infection - History of Present Illness This is a 43-year-old female with only past medical history of hyperlipidemia and chronic dermatitis under the care of Dr. Pinto. Patient gives history that she was admitted to the hospital 2 weeks ago with concern for chest pain and PE/DVT were ruled out. Patient states that on February 07 she noticed that she had a bump on the upper lip. On the she noticed that it has spread to the left side of her mouth and face. On February 11, she went to urgent care center where she received one dose of IM Rocephin and provided prescription for Keflex and instructed to apply bacitracin to the rash. Over the weekend she had significant drainage and the rash continued to spread involving more of her face including some spots on her eyelids and neck to the base of the neck. She then had involvement of the right hand dorsal surface. She went to [facility] on February 15 and was given a prescription for Bactrim and Valtrex which she started taking but was also instructed to come into the hospital for evaluation. She denies any previous rashes like this and no other contacts. She does state that his spread into her mouth on the roof of her mouth. She feels best and pins and some areas are quite itchy. She has enlarged lymph nodes. She denies any involvement of her ears. Her mother gives history that she had severe case of chickenpox when she was 6 years old and seen worse than other children. In [facility] she had workup with Dr. Cope for juvenile arthritis and lupus which apparently came back negative. Patient denies having any autoimmune disorders. No cultures have been obtained, rash currently nondraining. Patient denies having any fever or chills. Over the weekend she felt some generalized malaise but this has improved. The patient has been afebrile, WBC 7.4, creatinine 0.71. Electrolytes and liver function tests within normal limits. Albumin 4.5. The patient has been started on vancomycin. Review of Systems Constitutional: Reports fatigue, Denies anorexia, Denies chills, Denies fever, Denies poor appetite, Denies weight loss Ears, nose, mouth and throat: Reports mouth pain, Denies dysphagia, Denies nasal congestion, Denies nasal discharge, Denies vertigo Cardiovascular: Denies chest pain, Denies dyspnea on exertion, Denies edema, Denies leg edema, Denies lightheadedness, Denies syncope Respiratory: Denies congestion, Denies cough, Denies cough with sputum, Denies dyspnea, Denies excessive sputum, Denies hemoptysis, Denies home oxygen, Denies wheezing Gastrointestinal: Denies diarrhea, Denies loss of appetite, Denies nausea, Denies vomiting Genitourinary: Denies dysuria, Denies urgency, Denies urinary frequency Musculoskeletal: Denies frequent falls, Denies gait dysfunction, Denies muscle weakness, Denies myalgias Integumentary: Reports pruritus, Reports rash, Reports sores, Reports wounds Neurological: Denies aphasia, Denies change in mentation, Denies change in speech, Denies confusion Psychiatric: Denies anxiety, Denies depression Past Medical History Past Medical History: Asthma, Thyroid Disorder History of Any Multi-Drug Resistant Organisms: None Reported Additional Past Surgical History / Comment(s): nasal X2 Additional Past Anesthesia/Blood Transfusion Reaction / Comm: Woke up in the middle of a nasal surgery Past Psychological History: ADD/ADHD Smoking Status: Never smoker Past Alcohol Use History: None Reported Past Drug Use History: None Reported - Past Family History Mother Additional Family Medical History / Comment(s): waqas Father Family Medical History: CVA/TIA, Myocardial Infarction ([place]) Additional Family Medical History / Comment(s): Father of a [place] at age 62 Medications and Allergies Home Medications Medication Instructions Recorded Confirmed Type Dextroamphetamine/Amphetamine 10 mg PO TID 01/29/19 02/15/19 History [Adderall] Levothyroxine Sodium [Synthroid] 100 mcg PO DAILY 01/29/19 02/15/19 History Aspirin EC [Ecotrin Low Dose] 81 mg PO DAILY #30 tablet. 01/31/19 02/15/19 Rx Acyclovir 400 mg PO Q4H 02/15/19 02/15/19 History Cephalexin [Keflex] 500 mg PO Q8HR 02/15/19 02/15/19 History Sulfamethox-Tmp 800-160Mg [Bactrim 1 tab PO Q12HR 02/15/19 02/15/19 History DS 800-160 mg] Allergies Allergy/AdvReac Type Severity Reaction Status Date / Time latex Allergy Rash/Hives Verified 07/14/19 20:49 lemon Allergy Unknown Verified 02/15/19 20:49 mushroom Allergy Unknown Verified 02/15/19 20:49 Poultry [Guinda] Allergy Unknown Verified 02/15/19 20:49 tomato Allergy Unknown Verified 02/15/19 20:49 Physical Exam Vitals: Vital Signs Temp Pulse Pulse Resp BP BP Pulse Ox 02/16/19 08:40 98.3 F 69 18 131/76 100 02/16/19 04:30 98.9 F 67 16 131/95 96 02/15/19 22:37 98.1 F 73 16 130/93 100 02/15/19 22:26 98.6 F 02/15/19 21:58 78 20 118/92 97 02/15/19 20:37 98.7 F 78 18 144/95 98 Intake and Output 02/15/19 02/16/19 02/16/19 22:59 06:59 14:59 Other: # Voids 1 Weight 92.261 kg Gen: This is a 43-year-old female. She is resting in bed appears to be comfortable in no acute distress. HEENT: Head is atraumatic, normocephalic. Pupils equal, round. Sclerae is anicte lin. Conjunctiva pink. Mucous members of the mouth are moist. A few scattered lesions noted on the roof of her mouth. The patient has rash with crusting surrounding erythema and minimal edema to the lips and chin neck. A few scattered lesions on around her eyelids. No significant drainage. No foul order. NECK: Supple. No JVD. No lymphadenopathy. No thyromegaly. LUNGS: Clear to auscultation. No wheezes or rhonchi. No intercostal retractions. HEART: Regular rate and rhythm. No murmur. ABDOMEN: Soft. Bowel sounds are present. No masses. No tenderness. EXTREMITIES: No pedal edema. No calf tenderness. Dorsalis pedis +2 bilaterally. A few scattered lesions to the right dorsal surface of the hand at the first and second metacarpal. Patient also has some chronic xerodrema. NEUROLOGICAL: Patient is awake, alert and oriented x3. Cranial nerves 2 through 12 are grossly intact. Results Results: Laboratory Results WBC 7.4 k/uL (3.8-10.6) 02/15/19 21:49 RBC 5.26 m/uL (3.80-5.40) 02/15/19 21:49 Hgb 15.3 gm/dL (11.4-16.0) 02/15/19 21:49 Hct 47.0 % (34.0-46.0) H 02/15/19 21:49 MCV 89.4 fL (80.0-100.0) 02/15/19 21:49 MCH 29.0 pg (25.0-35.0) 02/15/19 21:49 MCHC 32.5 g/dL (31.0-37.0) 02/15/19 21:49 RDW 12.4 % (11.5-15.5) 02/15/19 21:49 Plt Count 223 k/uL (150-450) 02/15/19 21:49 Neutrophils % 60 % 02/15/19 21:49 Lymphocytes % 29 % 02/15/19 21:49 Monocytes % 8 % 02/15/19 21:49 Eosinophils % 1 % 02/15/19 21:49 Basophils % 1 % 02/15/19 21:49 Neutrophils # 4.4 k/uL (1.3-7.7) 02/15/19 21:49 Lymphocytes # 2.1 k/uL (1.0-4.8) 02/15/19 21:49 Monocytes # 0.6 k/uL (0-1.0) 02/15/19 21:49 Eosinophils # 0.1 k/uL (0-0.7) 02/15/19 21:49 Basophils # 0.1 k/uL (0-0.2) 02/15/19 21:49 Sodium 139 mmol/L (137-145) 02/15/19 21:49 Potassium 4.0 mmol/L (3.5-5.1) 02/15/19 21:49 Chloride 104 mmol/L (98-107) 02/15/19 21:49 Carbon Dioxide 25 mmol/L (22-30) 02/15/19 21:49 Anion Gap 10 mmol/L 02/15/19 21:49 BUN 12 mg/dL (7-17) 02/15/19 21:49 Creatinine 0.70 mg/dL (0.52-1.04) 02/15/19 21:49 Est GFR (CKD-EPI)AfAm >90 (>60 ml/min/1.73 sqM) 02/15/19 21:49 Est GFR (CKD-EPI)NonAf >90 (>60 ml/min/1.73 sqM) 02/15/19 21:49 Glucose 88 mg/dL (74-99) 02/15/19 21:49 Calcium 9.7 mg/dL (8.4-10.2) 02/15/19 21:49 Total Bilirubin 0.4 mg/dL (0.2-1.3) 02/15/19 21:49 AST 29 U/L (14-36) 02/15/19 21:49 ALT 18 U/L (9-52) 02/15/19 21:49 Alkaline Phosphatase 79 U/L (38-126) 02/15/19 21:49 Total Protein 7.9 g/dL (6.3-8.2) 02/15/19 21:49 Albumin 4.5 g/dL (3.5-5.0) 02/15/19 21:49 CBC & Chem 7: 02/15/19 21:49 02/15/19 21:49 Labs: Abnormal Lab Results - Last 24 Hours (Table) 02/15/19 Range/Units 21:49 Hct 47.0 H (34.0-46.0) % Assessment and Plan Plan: This is a 43-year-old female who presented to hospital with rash appears to be impetigo with significant spreading failed outpatient treatment with concern for secondary infection. She is currently on vancomycin. Local wound care will be addressed. Further recommendations as patient progresses. The above dictated assessment and findings were discussed with Dr. Limon. The impression and plan of care have been directed as dictated. Greer Torres nurse practitioner acting as scribe for Dr. Limon.
--- NOTE | 2019-02-16 11:03 | P.HPIM ---
History of Present Illness H&P Date: 02/16/19 Chief Complaint: facial crusting Christy Tijerina is a 43-year-old female with PMH significant for chronic dermatitis who presents with worsening honey crusted perioral lesions over the past 1 week. Patient states that she was admitted to the hospital 2 weeks ago with concern for chest pain and PE/DVT were ruled out. A few days after discharge on February 07 she noticed that she had a bump on the upper lip. On the she noticed that it has spread to the left side of her mouth and face. On February 11, she went to urgent care center where she received one dose of IM Rocephin and provided prescription for Keflex and instructed to apply bacitracin to the rash. Over the weekend she had significant drainage and the rash continued to spread involving more of her face including some spots on her eyelids and neck to the base of the neck. She then had involvement of the right hand dorsal surface. She went to [facility] on February 15 and was given a prescription for Bactrim and Valtrex which she started taking but was also instructed to come into the hospital for evaluation. She denies any tingling around her lesions but does endorse some burning. She denies a history of cold sores, MRSA or immunocompromise. Patient denies having any fever or chills. Over the weekend she felt some generalized malaise but this has improved. In the ED, pt afebrile, WBC 7.4, creatinine 0.71. The lesions have not been cultured. The patient was started on vancomycin and she does feel her lesions are improved and less painful today. Past Medical History Past Medical History: Asthma, Thyroid Disorder History of Any Multi-Drug Resistant Organisms: None Reported Additional Past Surgical History / Comment(s): nasal X2 Additional Past Anesthesia/Blood Transfusion Reaction / Comment(s): Woke up in the middle of a nasal surgery Past Psychological History: ADD/ADHD Smoking Status: Never smoker Past Alcohol Use History: None Reported Past Drug Use History: None Reported - Past Family History Mother Additional Family Medical History / Comment(s): glorias Father Family Medical History: CVA/TIA, Myocardial Infarction ([place]) Additional Family Medical History / Comment(s): Father of a [place] at age 62 Medications and Allergies Home Medications Medication Instructions Recorded Confirmed Type Dextroamphetamine/Amphetamine 10 mg PO TID 01/29/19 02/15/19 History [Adderall] Levothyroxine Sodium [Synthroid] 100 mcg PO DAILY 01/29/19 02/15/19 History Aspirin EC [Ecotrin Low Dose] 81 mg PO DAILY #30 tablet. 01/31/19 02/15/19 Rx Acyclovir 400 mg PO Q4H 02/15/19 02/15/19 History Cephalexin [Keflex] 500 mg PO Q8HR 02/15/19 02/15/19 History Sulfamethox-Tmp 800-160Mg [Bactrim 1 tab PO Q12HR 02/15/19 02/15/19 History DS 800-160 mg] Allergies Allergy/AdvReac Type Severity Reaction Status Date / Time latex Allergy Rash/Hives Verified 02/15/19 20:49 lemon Allergy Unknown Verified 02/15/19 20:49 mushroom Allergy Unknown Verified 02/15/19 20:49 Poultry [Rex] Allergy Unknown Verified 02/15/19 20:49 tomato Allergy Unknown Verified 02/15/19 20:49 Physical Exam Vitals: Vital Signs Temp Pulse Pulse Resp BP BP Pulse Ox 02/16/19 08:40 98.3 F 69 18 131/76 100 02/16/19 04:30 98.9 F 67 16 131/95 96 02/15/19 22:37 98.1 F 73 16 130/93 100 02/15/19 22:26 98.6 F 02/15/19 21:58 78 20 118/92 97 02/15/19 20:37 98.7 F 78 18 144/95 98 Intake and Output 02/15/19 02/16/19 02/16/19 22:59 06:59 14:59 Other: # Voids 1 Weight 92.261 kg Results CBC & Chem 7: 02/15/19 21:49 02/15/19 21:49 Labs: Abnormal Lab Results - Last 24 Hours (Table) 02/15/19 Range/Units 21:49 Hct 47.0 H (34.0-46.0) % Thrombosis Risk Factor Assmnt - Choose All That Apply Any of the Below Risk Factors Present?: Yes Each Factor Represents 1 point: Age 41-60 years, Obesity (BMI >25), Varicose veins Other Risk Factors: No Thrombosis Risk Factor Assessment Total Risk Factor Score: 3 Thrombosis Risk Factor Assessment Level: Moderate Risk Assessment and Plan (1) Impetigo Current Visit: Yes Status: Acute Code(s): L01.00 - IMPETIGO, UNSPECIFIED SNOMED Code(s): 60149550 (2) Failure of outpatient treatment Current Visit: Yes Status: Acute Code(s): Z78.9 - OTHER SPECIFIED HEALTH STATUS SNOMED Code(s): 939920535 Plan: 1. Impetigo. Failed rocephin and keflex outpatient. ID consulted. Will attempt to obtain wound culture. Low suspicion for herpetic lesion. Continue vancomycin 2. Hypothyroidism. Continue synthroid 3. ADHD. Hold adderall
[2019-02-16] MEDS: LEVOTHYROXINE 100 MCG TAB PO SCH (12:56)
[2019-02-16] MEDS: ACETAMINOPHEN TAB 325 MG TAB PO PRN (16:12)
[2019-02-16] MEDS: VANCOMYCIN 1,500 MG in SODIUM CHLORIDE 0.9% 250 ML IVPB SCH ×2 (16:12→23:27)
[2019-02-16] MEDS: MUPIROCIN 2% OINT 22 GM TUBE TOPICAL SCH ×2 (17:53→22:02)
[2019-02-16 23:12] VITALS: RESP 16
--- NOTE | 2019-02-16 23:14 | P.CON ---
Consult Note - . Consult date: 02/16/19 Assessment/Plan:: This is a 43-year-old female with only past medical history of hyperlipidemia and chronic dermatitis under the care of Dr. Pinto. Patient gives history that she was admitted to the hospital 2 weeks ago with concern for chest pain and PE/DVT were ruled out. Patient states that on February 07 she noticed that she had a bump on the upper lip. On the she noticed that it has spread to the left side of her mouth and face. On February 11, she went to urgent care center where she received one dose of IM Rocephin and provided prescription for Keflex and instructed to apply bacitracin to the rash. Over the weekend she had significant drainage and the rash continued to spread involving more of her face including some spots on her eyelids and neck to the base of the neck. She then had involvement of the right hand dorsal surface. She went to [facility] on February 15 and was given a prescription for Bactrim and Valtrex which she started taking but was also instructed to come into the hospital for evaluation. She denies any previous rashes like this and no other contacts. She does state that his spread into her mouth on the roof of her mouth. She feels best and pins and some areas are quite itchy. She has enlarged lymph nodes. She denies any involvement of her ears. Her mother gives history that she had severe case of chickenpox when she was 6 years old and seen worse than other children. In [facility] she had workup with Dr. Cope for juvenile arthritis and lupus which apparently came back negative. Patient denies having any autoimmune disorders. No cultures have been obtained, rash currently nondraining. Patient denies having any fever or chills. Over the weekend she felt some generalized malaise but this has improved. The patient has been afebrile, WBC 7.4, creatinine 0.71. Electrolytes and liver function tests within normal limits. Albumin 4.5. The patient has been started on vancomycin.Please see the consult note as dictated per nurse practitioner Mrs. Greer Torres. This pleasant 43-year-old woman has not had difficulties with impetigo in the past does have a chronic dermatitis to her extremities that she is treated over the years. She has been evaluated for autoimmune disease in the past and has never been diagnosed with any specific disorder. Patient is evidence of the significant impetigo of her face and failed treatment for strep coccal infection likely it is a staphylococcal impetigo none. Antibiotic therapy has been changed to vancomycin. He appears in was applied to her skin that cause severe burning and constantly this is transitioned to Silvadene. Vitamin A and D can be applied to her lips multiple times through the day to improve her discomfort. Cultures may further help direct therapy. The eruption does not appear to be Vaicella in nature. The distribution is very significant and atypical for a primary or secondary herpetic infection. Patient's progress will be followed. I agree with evaluation, assessment and plan this 62 by nurse practitioner Mrs. Greer Torres.
[2019-02-16] MEDS: diphenhydrAMINE 50 MG/ML 1 ML VIAL IVP PRN (23:26)
[2019-02-17] MEDS: LEVOTHYROXINE 100 MCG TAB PO SCH (06:45)
[2019-02-17] MEDS ORDERED: VANCOMYCIN TROUGH DUE 1 EACH MISC MISCELLANE ONE (07:00)
[2019-02-17 07:54] LABS: African American GFR (CKD) >90 (>60 ml/min/1.73 sqM); Anion Gap 7 mmol/L; Blood Urea Nitrogen 9 mg/dL (7-17); Calcium 8.8 mg/dL (8.4-10.2); Carbon Dioxide 26 mmol/L (22-30); Chloride 105 mmol/L (98-107); Glucose 89 mg/dL (74-99); Potassium 4.7 mmol/L (3.5-5.1); Sodium 138 mmol/L (137-145)
[2019-02-17] MEDS: VANCOMYCIN 1,500 MG in SODIUM CHLORIDE 0.9% 250 ML IVPB SCH ×2 (08:31→18:27)
--- NOTE | 2019-02-17 09:06 | P.PN ---
Subjective Progress Note Date: 02/17/19 Pt seen and evaluated at bedside. She feels her lesions are improving today, less redness and pain. She did have some burning with the mupirocin so was switched to silvadene and feels that is helping. No fever or chills. Objective - Vital Signs Vital signs: Vital Signs Temp 98.6 F 02/17/19 08:56 Pulse 64 02/17/19 08:58 Resp 16 02/17/19 08:56 BP 126/80 02/17/19 08:56 Pulse Ox 98 02/17/19 08:56 Intake & Output 02/16/19 02/17/19 02/17/19 18:59 06:59 18:59 Other: Voiding Method Toilet # Voids 2 1 - Exam Constitutional: well developed, NAD. Vitals reviewed HEENT: perioral papules and pustules with honey crusting. Erythema diminished from yesterday. Hyperpigmented macules and papules to neck, forearm CV: RRR Lungs: CTAB - Labs CBC & Chem 7: 02/15/19 21:49 02/17/19 07:09 Labs: Microbiology - Last 24 Hours (Table) 02/16/19 16:15 Gram Stain - Preliminary Face Wound Culture - Preliminary 02/15/19 21:49 Blood Culture - Preliminary Blood No Growth after 24 hours Assessment and Plan (1) Impetigo Current Visit: Yes Status: Acute Code(s): L01.00 - IMPETIGO, UNSPECIFIED SNOMED Code(s): 47381807 (2) Failure of outpatient treatment Current Visit: Yes Status: Acute Code(s): Z78.9 - OTHER SPECIFIED HEALTH STATUS SNOMED Code(s): 193798041 Plan: 1. Impetigo. Failed rocephin and keflex outpatient. ID consulted. Continuing vancomycin and silvadene topical 2. Hypothyroidism. Continue synthroid 3. ADHD. Hold adderall
[2019-02-17] MEDS: MUPIROCIN 2% OINT 22 GM TUBE TOPICAL SCH ×3 (10:54→22:11)
[2019-02-17] MEDS: ACETAMINOPHEN TAB 325 MG TAB PO PRN (12:06)
[2019-02-17] MEDS: SODIUM CHLORIDE 0.9% 1,000 ML IV SCH ×2 (12:08→18:27)
[2019-02-17] MEDS: IBUPROFEN 400 MG TAB PO PRN (18:31)
[2019-02-17] MEDS: diphenhydrAMINE 50 MG/ML 1 ML VIAL IVP PRN (22:12)
--- NOTE | 2019-02-18 01:16 | P.PN ---
Subjective Progress Note Date: 02/17/19 This is a 43-year-old female with only past medical history of hyperlipidemia and chronic dermatitis under the care of Dr. Pinto. Patient gives history that she was admitted to the hospital 2 weeks ago with concern for chest pain and PE/DVT were ruled out. Patient states that on February 07 she noticed that she had a bump on the upper lip. On the she noticed that it has spread to the left side of her mouth and face. On February 11, she went to urgent care center where she received one dose of IM Rocephin and provided prescription for Keflex and instructed to apply bacitracin to the rash. Over the weekend she had significant drainage and the rash continued to spread involving more of her face including some spots on her eyelids and neck to the base of the neck. She then had involvement of the right hand dorsal surface. She went to [facility] on February 15 and was given a prescription for Bactrim and Valtrex which she started taking but was also instructed to come into the hospital for evaluation. She denies any previous rashes like this and no other contacts. She does state that his spread into her mouth on the roof of her mouth. She feels best and pins and some areas are quite itchy. She has enlarged lymph nodes. She denies any involvement of her ears. Her mother gives history that she had severe case of chickenpox when she was 6 years old and seen worse than other children. In [place] she had workup with Dr. Cope for juvenile arthritis and lupus which apparently came back negative. Patient denies having any autoimmune disorders. No cultures have been obtained, rash currently nondraining. Patient denies having any fever or chills. Over the weekend she felt some generalized malaise but this has improved. The patient has been afebrile, WBC 7.4, creatinine 0.71. Electrolytes and liver function tests within normal limits. Albumin 4.5. The patient has been started on vancomycin. 02/17/2019 the patient is showing improvement with the current antibiotic therapy. The topical therapy is also improving the discomfort that she's had. She's having no significant lesions but the irritation down onto her neck is slightly increased from admission. But no other new areas are noted. She's having no new fevers or chills. Does have her chronic skin disorder. Objective - Vital Signs Vital signs: Vital Signs Temp 99 F 02/17/19 20:06 Pulse 65 02/18/19 00:00 Resp 16 02/18/19 00:00 BP 152/85 02/17/19 20:06 Pulse Ox 96 02/17/19 20:06 Intake & Output 02/17/19 02/17/19 02/18/19 06:59 18:59 06:59 Other: Voiding Method Toilet Toilet # Voids 1 3 1 - Exam Gen: This is a 43-year-old female. She is resting in bed appears to be comfortable in no acute distress. HEENT: Head is atraumatic, normocephalic. Pupils equal, round. Sclerae is anicteric. Conjunctiva pink. Mucous members of the mouth are moist. A few scattered lesions noted on the roof of her mouth. The patient has rash with cru sting surrounding erythema and minimal edema to the lips and chin neck. A few scattered lesions on around her eyelids. No significant drainage. No foul order. NECK: Supple. No JVD. No lymphadenopathy. No thyromegaly. LUNGS: Clear to auscultation. No wheezes or rhonchi. No intercostal retraction s. HEART: Regular rate and rhythm. No murmur. ABDOMEN: Soft. Bowel sounds are present. No masses. No tenderness. EXTREMITIES: No pedal edema. No calf tenderness. Dorsalis pedis +2 bilaterally. A few scattered lesions to the right dorsal surface of the hand at the first and second metacarpal. Patient also has some chronic xerodrema. NEUROLOGICAL: Patient is awake, alert and oriented x3 - Labs CBC & Chem 7: 02/15/19 21:49 02/17/19 07:09 Labs: Microbiology - Last 24 Hours (Table) 02/15/19 21:49 Blood Culture - Preliminary Blood No Growth after 48 hours 02/16/19 16:15 Gram Stain - Preliminary Face Wound Culture - Preliminary Laboratory Results WBC 7.4 k/uL (3.8-10.6) 02/15/19 21:49 RBC 5.26 m/uL (3.80-5.40) 02/15/19 21:49 Hgb 15.3 gm/dL (11.4-16.0) 02/15/19 21:49 Hct 47.0 % (34.0-46.0) H 02/15/19 21:49 MCV 89.4 fL (80.0-100.0) 02/15/19 21:49 MCH 29.0 pg (25.0-35.0) 02/15/19 21:49 MCHC 32.5 g/dL (31.0-37.0) 02/15/19 21:49 RDW 12.4 % (11.5-15.5) 02/15/19 21:49 Plt Count 223 k/uL (150-450) 02/15/19 21:49 Neutrophils % 60 % 02/15/19 21:49 Lymphocytes % 29 % 02/15/19 21:49 Monocytes % 8 % 02/15/19 21:49 Eosinophils % 1 % 02/15/19 21:49 Basophils % 1 % 02/15/19 21:49 Neutrophils # 4.4 k/uL (1.3-7.7) 02/15/19 21:49 Lymphocytes # 2.1 k/uL (1.0-4.8) 02/15/19 21:49 Monocytes # 0.6 k/uL (0-1.0) 02/15/19 21:49 Eosinophils # 0.1 k/uL (0-0.7) 02/15/19 21:49 Basophils # 0.1 k/uL (0-0.2) 02/15/19 21:49 Sodium 138 mmol/L (137-145) 02/17/19 07:09 Potassium 4.7 mmol/L (3.5-5.1) 02/17/19 07:09 Chloride 105 mmol/L (98-107) 02/17/19 07:09 Carbon Dioxide 26 mmol/L (22-30) 02/17/19 07:09 Anion Gap 7 mmol/L 02/17/19 07:09 BUN 9 mg/dL (7-17) 02/17/19 07:09 Creatinine 0.59 mg/dL (0.52-1.04) 02/17/19 07:09 Est GFR (CKD-EPI)AfAm >90 (>60 ml/min/1.73 sqM) 02/17/19 07:09 Est GFR (CKD-EPI)NonAf >90 (>60 ml/min/1.73 sqM) 07/16/19 07:09 Glucose 89 mg/dL (74-99) 02/17/19 07:09 Calcium 8.8 mg/dL (8.4-10.2) 02/17/19 07:09 Total Bilirubin 0.4 mg/dL (0.2-1.3) 02/15/19 21:49 AST 29 U/L (14-36) 02/15/19 21:49 ALT 18 U/L (9-52) 02/15/19 21:49 Alkaline Phosphatase 79 U/L (38-126) 02/15/19 21:49 Total Protein 7.9 g/dL (6.3-8.2) 02/15/19 21:49 Albumin 4.5 g/dL (3.5-5.0) 02/15/19 21:49 Vancomycin Trough 15.1 ug/mL 02/17/19 07:09 Microbiology 02/15/19 21:49 Blood Blood Culture - Preliminary No Growth after 48 hours 02/16/19 16:15 Face Gram Stain - Preliminary 02/16/19 16:15 Face Wound Culture - Preliminary Assessment and Plan (1) Impetigo Narrative/Plan: This pleasant 43-year-old woman has not had difficulties with impetigo in the past does have a chronic dermatitis to her extremities that she is treated over the years. She has been evaluated for autoimmune disease in the past and has never been diagnosed with any specific disorder. Patient is evidence of the significant impetigo of her face and failed treatment for strep coccal infection likely it is a staphylococcal impetigo none. Antibiotic therapy has been changed to vancomycin. He appears in was applied to her skin that cause severe burning and constantly this is transitioned to Silvadene. Vitamin A and D can be applied to her lips multiple times through the day to improve her discomfort. Cultures may further help direct therapy. The eruption does not appear to be Vaicella in nature. The distribution is very significant and atypical for a primary or secondary herpetic infection. Patient's progress will be followed. 02/17/2019 the patient is having improvement over the last day. She is hoping that she will have further improvement and will be able to hopefully be discharged home soon. Cultures are pending but again with the per treatment is likely that this is a staphylococcal infection and would need to ensure that were directing therapy to that at the time of discharge. Potentially will use clindamycin orally for home therapy. Does not appear to be viral at this time. Continue with Silvadene in the thick emollient to her lips to help with her symptoms. Current Visit: Yes Status: Acute Code(s): L01.00 - IMPETIGO, UNSPECIFIED SNOMED Code(s): 78458194 (2) Failure of outpatient treatment Current Visit: Yes Status: Acute Code(s): Z78.9 - OTHER SPECIFIED HEALTH STATUS SNOMED Code(s): 493335801
[2019-02-18] MEDS: VANCOMYCIN 1,500 MG in SODIUM CHLORIDE 0.9% 250 ML IVPB SCH ×3 (01:44→16:23)
[2019-02-18] MEDS: LEVOTHYROXINE 100 MCG TAB PO SCH (06:50)
[2019-02-18] MEDS: SODIUM CHLORIDE 0.9% 1,000 ML IV SCH (08:34)
[2019-02-18] MEDS: MUPIROCIN 2% OINT 22 GM TUBE TOPICAL SCH ×3 (08:36→23:17)
[2019-02-18] MEDS: ACETAMINOPHEN TAB 325 MG TAB PO PRN (09:16)
--- NOTE | 2019-02-18 15:26 | P.PN ---
Subjective Progress Note Date: 02/18/19 Pt seen and evaluated at bedside. Today she reports less burning and redness around her mouth lesions. She feels the silvadene is working well. The erythema surrounding the pustules on her neck has significantly decreased and now just at bases of the pustules. She has remained afebrile and denies any new or worsened lesions or discharge. Objective - Vital Signs Vital signs: Vital Signs Temp 99.0 F 02/18/19 12:35 Pulse 68 02/18/19 12:35 Resp 16 02/18/19 12:35 BP 126/83 02/18/19 12:35 Pulse Ox 99 02/18/19 12:35 Intake & Output 02/17/19 02/18/19 02/18/19 18:59 06:59 18:59 Other: Voiding Method Toilet Toilet # Voids 3 1 1 - Exam Constitutional: well developed, NAD. Vitals reviewed HEENT: perioral papules and pustules with honey crusting, improving. Erythema diminished from yesterday. Hyperpigmented macules and papules to neck, forearm CV: RRR Lungs: CTAB - Labs CBC & Chem 7: 02/15/19 21:49 02/17/19 07:09 Labs: Microbiology - Last 24 Hours (Table) 02/15/19 21:49 Blood Culture - Preliminary Blood No Growth after 48 hours 02/16/19 16:15 Gram Stain - Preliminary Face Wound Culture - Preliminary Assessment and Plan (1) Impetigo Current Visit: Yes Status: Acute Code(s): L01.00 - IMPETIGO, UNSPECIFIED SNOMED Code(s): 51402447 (2) Failure of outpatient treatment Current Visit: Yes Status: Acute Code(s): Z78.9 - OTHER SPECIFIED HEALTH STATUS SNOMED Code(s): 842977003 Plan: 1. Impetigo. Failed rocephin and keflex outpatient. ID on board. She remains on vancomycin. Will switch to clindaymcin today 2. Hypothyroidism. Continue synthroid 3. ADHD. Hold adderall
[2019-02-18] MEDS: IBUPROFEN 400 MG TAB PO PRN (18:04)
[2019-02-18] MEDS ORDERED: FLUCONAZOLE 150 MG TAB PO STA (21:43)
[2019-02-18] MEDS: diphenhydrAMINE 50 MG/ML 1 ML VIAL IVP PRN (23:08)
[2019-02-18] MEDS: CLINDAMYCIN 600 MG in DEXTROSE 5% IN WATER 50 ML IVPB SCH ×2 (23:13)
[2019-02-19] MEDS: SODIUM CHLORIDE 0.9% 1,000 ML IV SCH (06:20)
[2019-02-19] MEDS: LEVOTHYROXINE 100 MCG TAB PO SCH (06:21)
[2019-02-19] MEDS: MUPIROCIN 2% OINT 22 GM TUBE TOPICAL SCH (07:15)
[2019-02-19] MEDS: CLINDAMYCIN 600 MG in DEXTROSE 5% IN WATER 50 ML IVPB SCH ×2 (07:28)
[2019-02-19 07:46] VITALS: BP 133/90; PULSE 54; TEMP 98.2
[2019-02-19 08:43] LABS: African American GFR (CKD) >90 (>60 ml/min/1.73 sqM)
--- NOTE | 2019-02-19 10:19 | P.DS ---
Providers Date of admission: 02/15/19 21:38 Expected date of discharge: 02/19/19 Attending physician: Ajit Porras MD Consults: 02/15/19 21:36 Consult Physician Routine Consulting Provider: Anup Limon Consult Reason/Comments: impenteigo with secondary infection Do you want consulting provider notified?: Yes Primary care physician: Bianka Porras [facility] Course: Final D:iagnoses: (1) Impetigo Current Visit: Yes Status: Acute Code(s): L01.00 - IMPETIGO, UNSPECIFIED SNOMED Code(s): 19105143 (2) Failure of outpatient treatment Current Visit: Yes Status: Acute Code(s): Z78.9 - OTHER SPECIFIED HEALTH STATUS SNOMED Code(s): 743608243 (3) hypothyroidism (4) ADHD Hospital course:Christy Tijerina is a 43-year-old female with PMH significant for chronic dermatitis who presents with worsening honey crusted perioral lesions over the past 1 week. Patient states that she was admitted to the hospital 2 weeks ago with concern for chest pain and PE/DVT were ruled out. A few days after discharge on February 07 she noticed that she had a bump on the upper lip. On the she noticed that it has spread to the left side of her mouth and face. On February 11, she went to urgent care center where she received one dose of IM Rocephin and provided prescription for Keflex and instructed to apply bacitracin to the rash. Over the weekend she had significant drainage and the rash continued to spread involving more of her face including some spots on her eyelids and neck to the base of the neck. She then had involvement of the right hand dorsal surface. She went to [facility] on February 15 and was given a prescription for Bactrim and Valtrex which she started taking but was also instructed to come into the hospital for evaluation. She denies any tingling around her lesions but does endorse some burning. She denies a history of cold sores, MRSA or immunocompromise. Patient denies having any fever or chills. Over the weekend she felt some generalized malaise but this has improved. In the ED, pt afebrile, WBC 7.4, creatinine 0.71. The lesions have not been cultured. The patient was started on vancomycin and she does feel her lesions are improved and less painful today. 02/17/2019 She feels her lesions are improving today, less redness and pain. She did have some burning with the mupirocin so was switched to silvadene and feels that is helping. No fever or chills. 02/18/2019 Today she reports less burning and redness around her mouth lesions. She feels the silvadene is working well. The erythema surrounding the pustules on her neck has significantly decreased and now just at bases of the pustules. She has remained afebrile and denies any new or worsened lesions or discharge.She remains on vancomycin. Will switch to clindaymcin today. Significant clinical improvement. Patient is being discharged home in a stable condition with guarded prognosis. - Exam Constitutional: A & O X 3, NAD. HEENT: perioral papules and pustules with honey crusting, improving. Erythema diminished.Hyperpigmented macules and papules to neck, forearm CV: RRR Lungs: CTAB Neuro: No focal deficits The impression and plan of care has been dictated as directed. : I performed a history and examination of this patient, discussed the same with the dictator. I agree with the dictator's note ,documented as a scribe. Any additional findings or plans will be noted. Time taken: 35 minutes Patient Condition at Discharge: Stable Plan - Discharge Summary Discharge Rx Participant: Yes New Discharge Prescriptions: New Clindamycin HCl [Cleocin] 600 mg PO TID #60 cap diphenhydrAMINE [Benadryl] 25 mg PO QID PRN #1 capsule PRN Reason: Itching Ibuprofen 400 mg PO Q8H PRN #1 capsule PRN Reason: Pain SILVER sulfADIAZINE CREAM [Silvadene Cream] 1 applic TOPICAL BID applic Acetaminophen Tab [Tylenol] 650 mg PO Q6HR PRN tab PRN Reason: Mild Pain Or Fever > 100.5 Vitamins A and D [Vitamin A and D] 1 applic TOPICAL QID #1 tube Continue Levothyroxine Sodium [Synthroid] 100 mcg PO DAILY Dextroamphetamine/Amphetamine [Adderall] 10 mg PO TID Aspirin EC [Ecotrin Low Dose] 81 mg PO DAILY #30 tablet.dr Discontinued Sulfamethox-Tmp 800-160Mg [Bactrim DS 800-160 mg] 1 tab PO Q12HR Cephalexin [Keflex] 500 mg PO Q8HR Acyclovir 400 mg PO Q4H Discharge Medication List Dextroamphetamine/Amphetamine [Adderall] 10 mg PO TID 01/29/19 [History] Levothyroxine Sodium [Synthroid] 100 mcg PO DAILY 01/29/19 [History] Aspirin EC [Ecotrin Low Dose] 81 mg PO DAILY #30 tablet. 01/31/19 [Rx] Acetaminophen Tab [Tylenol] 650 mg PO Q6HR PRN tab 02/19/19 [Rx] Clindamycin HCl [Cleocin] 600 mg PO TID #60 cap 02/19/19 [Rx] Ibuprofen 400 mg PO Q8H PRN #1 capsule 02/19/19 [Rx] SILVER sulfADIAZINE CREAM [Silvadene Cream] 1 applic TOPICAL BID applic 02/19/19 [Rx] Vitamins A and D [Vitamin A and D] 1 applic TOPICAL QID #1 tube 02/19/19 [Rx] diphenhydrAMINE [Benadryl] 25 mg PO QID PRN #1 capsule 02/19/19 [Rx] Follow up Appointment(s)/Referral(s): Bianka Porras DO [Primary Care Provider] - 1 Week Ambulatory/Diagnostic Orders: Complete Blood Count w/diff [LAB.AMB] Time Frame: 3 Days, Location: None Selected
== END 2019-02-19 10:50 | disposition home or self-care (01) ==
LOC: EC 20:31 → 6PED 21:38
PROVIDERS: ADMIT Family Medicine; ATTEND Family Medicine
DX: L01.00 Impetigo, unspecified (principal); E03.9 Hypothyroidism, unspecified; F90.9 Attention-deficit hyperactivity disorder, unspecified type; L30.9 Dermatitis, unspecified; R59.9 Enlarged lymph nodes, unspecified; E86.0 Dehydration; J45.909 Unspecified asthma, uncomplicated; I83.90 Asymptomatic varicose veins of unspecified lower extremity; E66.9 Obesity, unspecified; Z68.30 Body mass index [BMI] 30.0-30.9, adult; Z79.890 Hormone replacement therapy; Z79.82 Long term (current) use of aspirin; Z79.899 Other long term (current) drug therapy; Z91.040 Latex allergy status; Z91.018 Allergy to other foods; Z82.49 Family history of ischemic heart disease and other diseases of the circulatory system; Z82.3 Family history of stroke; Z82.0 Family history of epilepsy and other diseases of the nervous system
CPT/HCPCS: 96361 ×5; 96366 ×5; 96367; 96375; 96376 ×2; 96365; 99284; 36415; 80053; 80048; 82565; 85025; 80202; 87040; 87070; 87205; G0378 ×5; J3370 ×4; J1200 ×3

== ENCOUNTER → 2022-06-29 | Outpatient (CLI) | payer BC ==
--- NOTE | 2022-06-29 13:23 | CT ---
EXAMINATION TYPE: CT brain wo con DATE OF EXAM: 06/29/2022 COMPARISON: None HISTORY: Concussion with LOC of [address] DLP: 1165 mGycm. Automated Exposure Control for Dose Reduction was Utilized. TECHNIQUE: CT scan of the head is performed without contrast. FINDINGS: The ventricles and basal cisterns and sulci over the convexities within normal limits and there is no mass effect or shift of midline structures. No abnormal density is seen throughout the brain parenchyma and there is no acute intra or extra-axia l hemorrhage. The posterior fossa including the brainstem, fourth ventricle and cerebellar pontine angles are gross ly normal. The intraorbital contents appear normal and symmetric. Visualized paranasal sinuses are well aerated however there is a mucous retention cyst or polyp in th e left maxillary sinus. Mastoid air cells and middle ear cavities are well aerated. The calvarium is intact. IMPRESSION: No acute intracranial hemorrhage, mass effect, or midline shift is seen.
== END | disposition home or self-care (01) ==
LOC: RADCTMAIN 12:10
PROVIDERS: ATTEND Family Medicine
DX: Z00.00 Encounter for general adult medical examination without abnormal findings (principal); S06.0XAA Concussion with loss of consciousness status unknown, initial encounter
CPT/HCPCS: 70450